=== PATIENT | female | born 1980 | race Caucasian/White ===

== ENCOUNTER → 2019-07-12 | Outpatient (CLI) | payer BC ==
[~2019-07-12] MED LIST: CITA10TA4 PO; DICL75TA PO; DICY10CA3 PO
== END | disposition home or self-care (01) ==
LOC: LAB 15:08
PROVIDERS: ATTEND Internal Medicine Gastroenterology
DX: Z11.59 Encounter for screening for other viral diseases (principal)
CPT/HCPCS: C9803; U0003

== ENCOUNTER → 2019-07-16 | Day surgery (SDC) | payer BC ==
[~2019-07-16] MED LIST changes: +IV RINGERS,LACTATED 1000ML 1,000 ML IV ONE; +LIDOCAINE 2% PF 5 ML VIAL. ONE; +PROPOFOL 10 MG/ML (20ML) VIAL. IV ONE
[2019-07-16 12:30] VITALS: BP 127/61
--- NOTE | 2019-07-17 15:07 | PATHOLOGY ---
[facility] Accession Number: [id number] . 01 Material submitted: . PART A: small bowel - SMALL BOWEL BX PART B: stomach - GASTRIC ANTRUM AND BODY PART C: esophagus - DISTAL ESOPHAGUS BX. Modifiers: distal PART D: ileum - TERMINAL ILEUM BX PART E: colon - RIGHT COLON BX. Modifiers: right PART F: colon - LEFT COLON BX. Modifiers: left . 01 Clinical history: . Pain, wt loss . 02 Diagnosis: A. Small bowel biopsies: - No significant pathologic abnormalities. . B. Gastric biopsies, gastric antrum and gastric body: - Chronic gastritis, mild, focally active. . C. Esophageal biopsies, distal esophagus: - Segments of esophagogastric and gastric mucosa showing moderate chronic inflammation. . D. Small intestine mucosa, terminal ileum biopsies: - No significant pathologic abnormalities. . E. Colonic mucosa, right colon biopsies: - No significant pathologic abnormalities. . F. Colonic mucosa, left colon biopsies: - No significant pathologic abnormalities. (JPM:ana; 07/17/2019) [facility] 07/17/2019 1443 Local . 02 Comment: Sections of the small bowel biopsy reveal segments of duodenal and small intestine mucosa. There are focally prominent Faiza's glands. Where best oriented, the mucosal villi show no sprue-like changes or significant inflammatory changes. . Sections of the gastric biopsy reveal segments of gastric antral and gastric body mucosa. The gastric body mucosa shows focal slight superficial chronic inflammation. The gastric antral mucosa shows congestion and focally active mild chronic inflammation. A properly controlled immunoperoxidase stain for Helicobacter is negative for Helicobacter organisms. . Sections of the distal esophageal biopsy reveal segments of esophagogastric and gastric mucosa showing moderate chronic inflammation. The squamous mucosa is hyperplastic. The findings are consistent with reflux changes. There is no evidence of Ling's change, dysplasia, or malignancy. . Sections of the terminal ileum biopsy reveal segments of small intestine mucosa. Where best oriented, the mucosal villi show no sprue-like changes or significant inflammatory changes. . Sections of the right colon and left colon biopsies reveal segments of colonic mucosa. There is no evidence of a chronic destructive colitis, lymphocytic colitis, or collagenous colitis. (JPM:ana 07/17/2019) . Special stain performed: Immunoperoxidase stain for Helicobacter on B1. . 02 Electronically signed: . Flash Ko MD, Pathologist NPI- [id number] . 01 Gross description: . A. The specimen is received in formalin, labeled "Elsie, Rosa, small bowel BX" and consists of 4 fragments of pink-person tissue measuring 1.0 x 0.7 x 0.3 cm in aggregate which are entirely submitted in A1. . B. The specimen is received in formalin, labeled "Elsie, Rosa, gastric antrum and body BX" and consists of multiple fragments of person tissue measuring 1.1 x 0.7 x 0.3 cm in aggregate which are entirely submitted in B1. . C. The specimen is received in formalin, labeled "Elsie, Rosa, distal esophagus BX" and consists of multiple fragments of pink-person tissue measuring 1.3 x 0.9 x 0.2 cm in aggregate which are entirely submitted in C1. . D. The specimen is received in formalin, labeled "Elsie, Rosa, terminal ileum BX" and consists of 2 fragments of pink-person tissue measuring 0.3 x 0.3 cm and 0.4 x 0.3 cm which are entirely submitted in D1. . E. The specimen is received in formalin, labeled "Elsie, Rosa, right colon BX" and consists of 4 fragments of pink-person tissue measuring between 0.4 x 0.2 cm and 0.6 x 0.2 cm which are entirely submitted in E1. . F. The specimen is received in formalin, labeled "Elsie, Rosa, left colon BX" and consists of multiple fragments of pink-person tissue measuring 1.0 x 0.9 x 0.2 cm in aggregate which are entirely submitted in F1. (SDY; 07/16/2019) SYU/SYU 07/16/2019 1730 Local . 02 Pathologist provided ICD-10: K29.50, K20.8, R63.4 . 02 CPT . 694151, 937285, 903202, 901979, 102743, [id number], [id number] Specimen Comment: A courtesy copy of this report has been sent to [phone] Specimen Comment: [id number] Specimen Comment: Report sent to / DR ROSSI Performed at: 01 [facility] [address], [place] [id number] MD Morris Cordero MD Phone: [phone] Performed at: 02 [facility] [address] [place], [place] [id number] MD Flash Ko MD Phone: [phone]
== END ==
LOC: SURG 09:46
PROVIDERS: ATTEND Internal Medicine Gastroenterology
DX: K62.5 Hemorrhage of anus and rectum (principal); K57.30 Diverticulosis of large intestine without perforation or abscess without bleeding; K29.50 Unspecified chronic gastritis without bleeding; K63.89 Other specified diseases of intestine; K64.0 First degree hemorrhoids; K21.0 Gastro-esophageal reflux disease with esophagitis; F41.9 Anxiety disorder, unspecified; F32.9 Major depressive disorder, single episode, unspecified; K21.9 Gastro-esophageal reflux disease without esophagitis; F15.90 Other stimulant use, unspecified, uncomplicated; Z88.6 Allergy status to analgesic agent; Z91.040 Latex allergy status; Z72.89 Other problems related to lifestyle; Z87.891 Personal history of nicotine dependence; Z98.51 Tubal ligation status
CPT/HCPCS: 43239; 45380; 88305; 88342; J2704; J3490

== ENCOUNTER → 2019-11-09 | Outpatient (CLI) | payer BC ==
[2019-07-16 12:30] VITALS: BP 127/61
[~2019-11-09] MED LIST changes: -IV RINGERS,LACTATED 1000ML 1,000 ML IV ONE; -LIDOCAINE 2% PF 5 ML VIAL. ONE; -PROPOFOL 10 MG/ML (20ML) VIAL. IV ONE
--- NOTE | 2019-11-09 08:21 | RAD ---
EXAM: Pelvic sonogram. HISTORY: Menorrhagia. TECHNIQUE: Transabdominal sonographic imaging of the pelvis was performed. COMPARISON: None. FINDINGS: The uterus measures 10.0 x 6.3 x 4.8 cm. The endometrial stripe measures 10 mm in thickness. The ovaries are normal in size and demonstrate normal blood flow. There are bilateral ovarian follicles, with a dominant follicle on the left measuring 1.5 cm. There is no pelvic free fluid. IMPRESSION: 1. Normal endometrial stripe thickness for the premenopausal status of the patient. 2. Physiologic dominant left ovarian follicle measuring 1.5 cm. Electronically signed by: Ines Shepard MD (11/09/2019 8:18 AM) [id number]
== END | disposition home or self-care (01) ==
LOC: US 06:49
PROVIDERS: ATTEND Nurse Practitioner Family
DX: N92.0 Excessive and frequent menstruation with regular cycle (principal); N83.02 Follicular cyst of left ovary; R93.89 Abnormal findings on diagnostic imaging of other specified body structures
CPT/HCPCS: 76856

== ENCOUNTER → 2020-05-30 | Outpatient (CLI) | payer BC ==
[2019-07-16 12:30] VITALS: BP 127/61
[2020-05-30 12:53] LABS: BASO # 0.1 x10^3/uL (0.0-0.2); BASO % 1 % (0-3); EOS # 0.2 x10^3/uL (0.0-0.7); EOS % 1 % (0-3); HEMATOCRIT 40.8 % (36.0-47.0); HEMOGLOBIN 13.9 g/dL (12.0-15.5); LYMPH # 2.3 x10^3/uL (1.0-4.8); LYMPH % 19 % (24-48); MEAN CORPUSCULAR HEMOGLOBIN 31 pg (25-35); MEAN CORPUSCULAR HGB CONC 34 g/dL (31-37); MEAN CORPUSCULAR VOLUME 91 fL (79-100); MONO # 0.7 x10^3/uL (0.0-1.1); MONO % 6 % (0-9); NEUT # 8.8 x10^3/uL (1.8-7.7); NEUT % 73 % (31-73); PLATELET COUNT 252 x10^3/uL (140-400); RED BLOOD COUNT 4.49 x10^6/uL (3.50-5.40); RED CELL DISTRIBUTION WIDTH 13.8 % (11.5-14.5)
[2020-05-30 13:15] LABS: ALBUMIN/GLOBULIN RATIO 1.3 (1.0-1.7); CALCIUM 8.4 mg/dL (8.5-10.1); CREATININE 0.5 mg/dL (0.6-1.0); POTASSIUM 3.6 mmol/L (3.5-5.1); TOTAL BILIRUBIN 0.4 mg/dL (0.2-1.0); TOTAL PROTEIN 7.2 g/dL (6.4-8.2)
--- NOTE | 2020-05-30 13:29 | RAD ---
EXAM: Chest, 2 views. HISTORY: Hysterectomy. COMPARISON: None. FINDINGS: 2 views of the chest are obtained. There is no infiltrate, pleural effusion or pneumothorax . The heart is normal in size. There are nipple shadows overlying the bilateral lower thorax. There a re cholecystectomy clips. There is mild thoracolumbar scoliosis. IMPRESSION: No acute pulmonary finding. Electronically signed by: Ines Shepard MD (05/30/2020 1:27 PM) [id number]
== END ==
LOC: SURGPAT 12:16
PROVIDERS: ATTEND Obstetrics & Gynecology
DX: Z01.812 Encounter for preprocedural laboratory examination (principal); Z87.891 Personal history of nicotine dependence; Z88.6 Allergy status to analgesic agent; Z20.822 Contact with and (suspected) exposure to COVID-19
CPT/HCPCS: 36415; 71046; 80053; 85025; U0003; U0005

== ENCOUNTER 2020-06-04 06:10 | Day surgery (SDC) | payer BC ==
[~2020-06-04] VITALS: Ht 147.3 cm; Wt 42.0 kg
[~2020-06-04 06:10] MED LIST changes: +IV RINGERS,LACTATED 1000ML 1,000 ML IV SCH; +ceFAZolin SODIUM IV Push 1 GM VIAL. IVP PRN; +fentaNYL PF VIAL 100 MCG/2 ML VIAL IVP PRN
[2020-06-04] MEDS ORDERED: SCOPOLAMINE 1.5MG PATCH. TD SCH (06:30)
[2020-06-04] MEDS ORDERED: MIDAZOLAM HCL/PF 2 MG/2 ML VIAL. ONE (07:02)
[2020-06-04] MEDS ORDERED: GLYCOPYRROLATE 1 MG/5 ML VIAL. ONE (07:02)
[2020-06-04] MEDS ORDERED: fentaNYL PF VIAL 100 MCG/2 ML VIAL ONE ×2 (07:02→08:42)
[2020-06-04] MEDS ORDERED: SEVOFLURANE > 120 MINUTES. IH ONE (07:02)
[2020-06-04] MEDS ORDERED: ONDANSETRON PF 4 MG/2 ML VIAL. ONE (07:03)
[2020-06-04] MEDS ORDERED: ROCURONIUM 50 MG/5 ML VIAL. ONE (07:03)
[2020-06-04] MEDS ORDERED: NEOSTIGMINE METHYLSULFATE 5 MG/5 ML SYRINGE. ONE (07:03)
[2020-06-04] MEDS ORDERED: LIDOCAINE 2% PF 5 ML VIAL. ONE (07:03)
[2020-06-04] MEDS ORDERED: DEXAMETHASONE SOD PHOS 4 MG/ML VIAL ONE (07:03)
[2020-06-04] MEDS ORDERED: PROPOFOL 10 MG/ML (20ML) VIAL. IV ONE (07:03)
[2020-06-04] MEDS ORDERED: INDIGOTINDISULFONATE SODIUM 40 MG/5 ML AMPUL. ONE (07:10)
[2020-06-04] MEDS ORDERED: ESTROGENS, CONJ VAGINAL CREAM 30GM TUBE. ONE (07:10)
[2020-06-04] MEDS ORDERED: BUPIVACAINE-EPI 0.25% 30 ML VIAL KIT. ONE (07:10)
[2020-06-04] MEDS ORDERED: ePHEDrine PF IN SALINE 50 MG/10 ML SYRINGE. IV ONE (08:02)
[2020-06-04] MEDS ORDERED: ESMOLOL 100 MG/10 ML VIAL. IVP ONE (08:29)
[2020-06-04] MEDS ORDERED: MORPHINE SULFATE 2 MG/ML VIAL. ONE (09:23)
[2020-06-04] MEDS ORDERED: PROCHLORPERAZINE 10 MG/2 ML VIAL. ONE (09:24)
[2020-06-04] MEDS: PROCHLORPERAZINE 10 MG/2 ML VIAL. IVP PRN ×2 (09:26→10:55)
[2020-06-04] MEDS: MORPHINE SULFATE 2 MG/ML VIAL. IVP PRN ×2 (09:27→09:41)
--- NOTE | 2020-06-04 09:29 | PDOC ---
BRIEF OPERATIVE NOTE Date: Jun 04, 2020 Pre-Op Diagnosis menorrhagia, L sided pelvic pain Post-Op Diagnosis same plus stage 3 endometriosis Procedure Performed operative laparoscopy, lysis of extensive adhesions Surgeon Dr. Burnham [employer] juan francisco rodriguez Anesthesiologist Dr. Wells Anesthesia Type: General Blood Loss 10cc IV Fluid see anesthesia Urine Output clear via edouard Specimens Obtained piece of adhesion/right ovary Findings mildly enlarged uterus, adhesions in RLQ where appendix is, large bowel adhesed to left cornua of uterus (fat pad over the bowel), both ovaries stuck to pelvic sidewalls, peritoneum covering cul de sac, thick adhesion on right US ligament and right ureter appeared to go right into this adhesion and on the posterior utero/cervical junction Complications none could not safely complete the hysterectomy here as I would have needed ureteral stents even if opened to palpate the ureter and peel off the US ligament and posterior uterus/cervix unfortunately we do not have urology services here at this time so did an operative scope, lysis of adhesions and closed her to send her to a facility that can take care of her adhesions and has urology services Operative Note [id number]? not sure if i got the whole document number after dictating LC BURNHAM MD Jun 04, 2020 09:29
[2020-06-04] MEDS ORDERED: NALOXONE 0.4 MG/ML VIAL. IV PRN (09:30)
[2020-06-04] MEDS ORDERED: 0.9 % SODIUM CHLORIDE 10 ML DISP.SYRIN. IV PRN (09:30)
[2020-06-04] MEDS ORDERED: HYDROcodone/APAP 5/325MG 1 TAB TABLET PO PRN (09:30)
[2020-06-04] MEDS ORDERED: CALCIUM CARBONATE 500 MG TAB.CHEW PO PRN (09:30)
[2020-06-04] MEDS ORDERED: SIMETHICONE 80 MG TAB.CHEW PO PRN (09:30)
[2020-06-04] MEDS ORDERED: diphenhydrAMINE 50 MG/ML VIAL IV PRN (09:30)
[2020-06-04] MEDS ORDERED: diphenhydrAMINE HCL 25 MG CAPSULE PO PRN (09:30)
[2020-06-04] MEDS ORDERED: MAG HYDROX/ALUMINUM HYD/SIMETH 30 ML ORAL.SUSP PO PRN (09:30)
[2020-06-04] MEDS ORDERED: HYDROmorphone 2 MG/ML VIAL ONE (09:50)
[2020-06-04] MEDS: HYDROmorphone 2 MG/ML VIAL IVP PRN ×2 (09:51→10:09)
[2020-06-04 10:31] VITALS: BP 114/60
--- NOTE | 2020-06-04 14:39 | OP ---
DATE OF SURGERY: 06/04/2020 PREOPERATIVE DIAGNOSES: Menorrhagia and left-sided pelvic pain. POSTOPERATIVE DIAGNOSES: Menorrhagia and left-sided pelvic pain plus stage III endometriosis with extensive adhesive disease. PROCEDURES: Operative laparoscopy and lysis of adhesions. SURGEON: Kandice Burnham MD TANK INSULATOR RUBBER: Angus Rincon ANESTHESIOLOGIST: Dr. Wells. ANESTHESIA: General. BLOOD LOSS: 10 mL. Urine output was clear via Huffman catheter. INTRAVENOUS FLUIDS: Please see anesthesia records. SPECIMENS: A piece of the right ovary and adhesion on the right side. FINDINGS: Mildly enlarged retroverted uterus, adhesions in the right lower quadrant where the appendix is, large bowel was adhesed to the left cornua of the uterus or at least the fat pad over the large bowel was adhesed to the left side of the uterine cornua. Both ovaries, left and right were stuck respectively to the pelvic sidewalls. Peritoneum covering the cul-de-sac was thick and I could not even identify the cul-de-sac initially, it looked just like a wall coming down from the uterocervical junction. The right uterosacral ligament had a large endometrial implant that was scarred and adhesed and attenuated involving the right uterosacral ligament in the posterior uterocervical junction there and unfortunately it looked like I could identify the right ureter coming over the infundibulopelvic ligament going down the right sidewall and it appeared to go straight end of this thick adhesion and so I could not safely get this down. I contemplated opening her; however, even if I opened her, I would have wanted ureteral stents, so I could feel this and safely peel it off as it was a thick adhesion in the posterior uterus and that right uterosacral ligament and unfortunately we do not have urology services here at this time to help with this process, so I just did an operative laparoscopy made sure she was stable, diagnosed it, took a lot of pictures and I will send her to a facility that can safely take care of her with her extensive endometriosis, adhesive disease and urology services. COMPLICATIONS: None. DESCRIPTION OF PROCEDURE: This patient was taken to the operating room where general anesthesia was placed. The patient was placed in a dorsal lithotomy position in [facility]. The patient's abdomen and vagina were both prepped and draped in the normal sterile fashion and a Huffman catheter had been inserted under sterile technique. Upon my arrival, a timeout was performed. Once everyone agreed on the patient, the site, the procedure, the antibiotics, the procedure was initiated. Starting vaginally, a bivalve speculum was placed in the patient's vagina. A single-tooth tenaculum was used to grasp the anterior lip of the cervix. A 10-12 mL of 0.25% Marcaine with epinephrine was used to circumferentially inject around the cervix for both hemodissection and hemostatic purposes later. The ValEchoFirst uterine manipulator was placed through the endocervical os, locked on the single tooth tenaculum and the bivalve speculum was then removed. Top gloves were discarded and changed. Attention was then turned to the abdomen where a supraumbilical skin incision was made with the scalpel first injecting the skin, making a small incision using a curved Baylee to dissect through the subcuticular layer of the fascia. The 5 mm Visiport was used to directly into the abdominal cavity. Opening patient pressure was 2 mmHg. Carbon dioxide gas was used to then appropriately insufflate the abdominal cavity to maintain a pressure of 15 mmHg. Right and left lower quadrant ports were placed, the right one was over her scar from her laparoscopic cholecystectomy. It was injected first and then making a small incision and placing the disposable 5 mm trocars and under direct visualization without difficulty. They were insufflated with 4-5 mL of air. The camera was moved laterally to look at the umbilical port. It was also clear and that trocar was also injected with 4-5 mL of air. At this point, she was placed in Trendelenburg position, overhead lights were dimmed and initial findings showed a mildly enlarged retroverted uterus that was difficult to move. The right upper quadrant liver area looked okay. The right lower quadrant area near where her appendix should be was already scarred and had some adhesions. The left side had the descending colon adhesions superior to the IP ligament and then getting down there to the pelvis, she also had some pericolic fat from the large bowel adhesed to the left cornua of the uterus. I had to take down to see that was clear, so I used the LigaSure to take that down. I was able to identify the left tube, the left ovary was stuck to the sidewall. It was able to be peeled up off the sidewall; however, after peeling it up, it was kind of a raw surface area. It was very difficult to identify the ureter. The vessel could be seen very easily on the left sidewall low and out of the way, but the ureter was difficult to identify, so I went to the right side, the tube came up, the right ovary was also stuck to the sidewall even more severe. It was able to be peeled out, but a little piece of it came off when I was peeling it up, so this was passed off for pathology. Once I got the right ovary off the sidewall, I was able to identify the right ureter coming into the pelvis over the IP ligament down the right sidewall and unfortunately, it went right into the thick adhesion involving the right uterosacral ligament, which was attenuated and pulled up on the posterior uterine wall. I tried to take down the adhesion gently using the blunt end of the suction tip and the cul-de-sac actually looked funny in the beginning also prior to doing all this, it almost looked like it was hard to see if the bowel was coming up or if it was peritoneum. She almost had a peritoneal wall covering the cul-de-sac. I was able to open that up and get in and identify the cul-de-sac and see that almost like an Connor-Masters window had formed and a piece of peritoneum covered it, kind of obliterating and taking out some of the cul-de-sac initially, so I was able to open that up and get into the posterior cul-de-sac and identify that, but she had this thick adhesion on the right side at the uterocervical junction and involving the right uterosacral ligament and unfortunately, as far as I could follow the ureter over that IP ligament down the right pelvic sidewall. Once that ovary was peeled up and taken down, it went right into this thick adhesion. I could not safely go laparoscopically, I considered opening her; however, even opening her I would have wanted ureteral stents to positively feel that ureter and peel it off the backside of the cervix and uterus and uterosacral and unfortunately we do not have urology services here at [facility] currently, so it was decided after doing all of this that it was the safest thing for the patient to do an operative scope, I did the lysis of adhesions, identified everything, took pictures of everything, but that she will need to be sent to a facility that can safely handle her extensive adhesions and has urology services to assist with possible stents or anything that they may need, which we do not have here, so all that was done was an operative laparoscopy. I then went back and made sure nothing was actively bleeding. After taking up both ovaries and taking pictures of everything and identifying it, I put Nicole over the pelvic sidewalls and the ovaries where they were adhesed and nothing was actively bleeding. It stayed white and powdery. I put it in the posterior cul-de-sac where I opened up that cul-de-sac as well. Nothing was actively bleeding, so at this point the procedure was decided to be ended. The right and left lower quadrant ports, the trocar cuffs were deflated and taken out under direct visualization, they were hemostatic. The umbilical trocar was deflated, but gas was released from this port first. Once that was done, it was removed as well. All 3 port sites were closed with 4-0 nylon at the skin and the patient was awakened from anesthesia and brought to recovery room in stable condition. [facility] DR: Roseanna TID: [id number]
--- NOTE | 2020-06-10 21:06 | PATHOLOGY ---
[facility] Accession Number: [id number] . 01 Material submitted: . ovary - RIGHT OVARY PIECE. Modifiers: right . 01 Clinical history: . MENORRHAGIA AND DYSMENORRHEA HYSTERECTOMY . 02 Diagnosis: Ovary "right", biopsy: - Endometriosis. - Negative for malignancy. (MLK:ana; 06/10/2020) [facility] 06/10/2020 1439 Local . 02 Comment: The case was seen in co-review with Dr. Mack Faust, who concurs with the above diagnosis. (MLK:ana; 06/10/2020) . 02 Electronically signed: . Nancy Moon MD, Pathologist NPI- [id number] . 01 Gross description: . The specimen is received in formalin, labeled "Rosa Zimmerman, right ovary". Received is a segment of pink-quintana tissue measuring 0.9 x 0.7 x 0.4 cm in greatest dimensions. The specimen is bisected and entirely submitted in cassette A1. ([facility]; 06/05/2020) [facility] 06/10/2020 1438 Local . 02 Pathologist provided ICD-10: N80.1 . 02 CPT . 436642 Specimen Comment: A courtesy copy of this report has been sent to [phone] Specimen Comment: [phone] Specimen Comment: Report sent to DR TAVAREZ / DR ROSSI Performed at: 01 [facility] [address], [place] [id number] MD Navarro Telles MD Phone: [phone] Performed at: 02 [facility] [address] [id number] MD Mcak Faust MD Phone: [phone]
== END 2020-06-04 12:02 | disposition home or self-care (01) ==
LOC: SURG 06:10
PROVIDERS: ATTEND Obstetrics & Gynecology
DX: N92.0 Excessive and frequent menstruation with regular cycle (principal); N73.6 Female pelvic peritoneal adhesions (postinfective); N80.1 Endometriosis of ovary; K21.9 Gastro-esophageal reflux disease without esophagitis; F41.9 Anxiety disorder, unspecified; F32.9 Major depressive disorder, single episode, unspecified; Z88.8 Allergy status to other drugs, medicaments and biological substances; Z90.49 Acquired absence of other specified parts of digestive tract; Z98.51 Tubal ligation status; Z98.890 Other specified postprocedural states; Z87.891 Personal history of nicotine dependence; Z79.899 Other long term (current) drug therapy
CPT/HCPCS: 36415; 58660; 81025; 86850; 86900; 86901; 88305; A4314; A4364; A4930; A6219; J0690; J0780; J1100; J1170; J2250; J2270; J2405; J2704; J2710; J3010; J3490; A4351; A4657